=== PATIENT | female | born 1985 | race Hispanic/Latino ===

== ENCOUNTER 2018-01-05 13:28 | Outpatient (RCR) | payer OTHER | END 2018-01-29 | LOC: EDBD → OT 13:28 | PROVIDERS: ATTEND Surgery Surgery of the Hand | DX: S63.8X2D Sprain of other part of left wrist and hand, subsequent encounter (principal); M79.645 Pain in left finger(s); M25.642 Stiffness of left hand, not elsewhere classified ==